=== PATIENT | male | born 1975 | race Caucasian/White ===

== ENCOUNTER 2017-08-09 14:01 | Emergency (ER) | payer BC ==
[~2017-08-09] VITALS: Ht 182.9 cm; Wt 68.0 kg
[2017-08-09] MEDS ORDERED: OMEPRAZOLE MAGN20 MG PO (14:35)
[2017-08-09 14:51] LABS: BASOPHILS ABSOLUTE AUTO 0.05 K/mm3 (0.00-0.23); BASOPHILS PERCENT AUTO 1 % (0-2); EOSINOPHILS ABSOLUTE AUTO 0.25 K/mm3 (0.00-0.68); EOSINOPHILS PERCENT AUTO 3 % (0-6); Hematocrit 43.3 % (37.0-53.0); Hemoglobin 15.2 g/dL (13.5-17.5); IMMATURE GRAN ABSOLUTE AUTO 0.03 K/mm3 (0.00-0.10); IMMATURE GRAN PERCENT AUTO 0 % (0-1); LYMPHOCYTES ABSOLUTE AUTO 1.56 K/mm3 (0.84-5.20); LYMPHOCYTES PERCENT AUTO 17 % (21-46); MONOCYTES PERCENT AUTO 5 % (4-13); Mean Corpuscular HGB 31.1 pg (26.0-34.0); Mean Corpuscular HGB Conc 35.1 g/dL (31.5-36.5); Mean Corpuscular Volume 89 fL (80-100); Mean Platelet Volume 12.5 fL (9.1-12.4); NEUTROPHILS ABSOLUTE AUTO 6.83 K/mm3 (1.96-9.15); NEUTROPHILS PERCENT AUTO 74 % (41-73); Platelet Count 227 K/mm3 (150-400); RDW Coefficient Variation 11.7 % (11.7-14.2); RDW Standard Deviation 37.6 fL (35.1-46.3); Red Blood Cell Count 4.89 M/mm3 (4.30-5.90); White Blood Cell Count 9.22 K/mm3 (4.00-11.30)
[2017-08-09 15:12] LABS: Base Excess Venous 4.7 mmol/L; Bicarbonate Venous 27.3 mmol/L (24.0-30.0); PCO2 Venous 47.5 mmHg (38-42)
[2017-08-09 15:13] LABS: Alanine Aminotransfer (ALT/SGP 19 U/L (12-78); Albumin, Blood 3.8 g/dL (3.4-5.0); Albumin/Globulin Ratio 1.2 (0.8-1.8); Alk Phos 165 U/L (50-136); Anion Gap 7 mmol/L (6-16); Aspartate Aminotrans (AST/SGOT 7 U/L (12-37); Bilirubin, Total 0.8 mg/dL (0.1-1.0); Blood Urea Nitrogen 11 mg/dL (8-24); Bun/Creatinine Ratio 15.7 (12.0-20.0); CO2, Blood 29 mmol/L (21-32); Calcium, Blood 9.1 mg/dL (8.5-10.1); Chloride, Blood 98 mmol/L (98-108); Globulin, Blood 3.2 g/dL (2.2-4.0); Glomerular Filtration Rate >60 (60-); Glucose, Blood 584 mg/dL (70-99); Potassium, Blood 4.6 mmol/L (3.5-5.5); Sodium, Blood 134 mmol/L (136-145)
[2017-08-09 15:29] LABS: Beta-hydroxybutyrate 2.4 mg/dL (0.2-2.8)
[2017-08-09] MEDS ORDERED: METF500C PO (16:29)
== END 2017-08-09 16:50 | disposition home or self-care (01) ==
LOC: ER 14:01
PROVIDERS: Emergency Medicine
DX: E11.65 Type 2 diabetes mellitus with hyperglycemia (principal); Z79.899 Other long term (current) drug therapy; F17.200 Nicotine dependence, unspecified, uncomplicated
CPT/HCPCS: 36415; 80053; 82010; 82803; 82947; 83036; 85025; J1815; J7030

== ENCOUNTER → 2020-12-13 | Outpatient (CLI) | payer OTHER ==
[~2020-12-13] MED LIST: METF500C PO; OMEPRAZOLE MAGN20 MG PO; ONDA4ODT MM; SUCR1 PO
== END ==
LOC: LAB 18:00 → LAB SHORT 18:00
DX: N39.0 Urinary tract infection, site not specified (principal)
CPT/HCPCS: 87077; 87086; 87186

== ENCOUNTER → 2022-12-26 | Outpatient (CLI) | payer BC ==
[2022-12-26 09:31] LABS: BASOPHILS ABSOLUTE AUTO 0.02 K/mm3 (0.00-0.23); BASOPHILS PERCENT AUTO 1 % (0-2); EOSINOPHILS PERCENT AUTO 5 % (0-6); Hematocrit 41.9 % (37.0-53.0); Hemoglobin 14.1 g/dL (13.5-17.5); IMMATURE GRAN ABSOLUTE AUTO 0.01 K/mm3 (0.00-0.10); IMMATURE GRAN PERCENT AUTO 0 % (0-1); LYMPHOCYTES PERCENT AUTO 21 % (21-46); MONOCYTES ABSOLUTE AUTO 0.51 K/mm3 (0.16-1.47); MONOCYTES PERCENT AUTO 14 % (4-13); Mean Corpuscular HGB 30.9 pg (26.0-34.0); Mean Corpuscular HGB Conc 33.7 g/dL (31.5-36.5); Mean Corpuscular Volume 92 fL (80-100); Mean Platelet Volume 11.6 fL (9.1-12.4); NEUTROPHILS ABSOLUTE AUTO 2.24 K/mm3 (1.96-9.15); NEUTROPHILS PERCENT AUTO 59 % (41-73); Platelet Count 179 K/mm3 (150-400); RDW Coefficient Variation 12.5 % (11.7-14.2); Red Blood Cell Count 4.57 M/mm3 (4.30-5.90); White Blood Cell Count 3.78 K/mm3 (4.00-11.30)
[2022-12-26 09:49] LABS: Alanine Aminotransfer (ALT/SGP 17 U/L (12-78); Albumin, Blood 3.7 g/dL (3.4-5.0); Albumin/Globulin Ratio 1.1 (0.8-1.8); Alk Phos 105 U/L (40-126); Anion Gap 6 mmol/L (6-16); Aspartate Aminotrans (AST/SGOT 11 U/L (12-37); Bilirubin, Total 0.9 mg/dL (0.1-1.0); Blood Urea Nitrogen 22 mg/dL (8-24); Bun/Creatinine Ratio 17.5 (12.0-20.0); CO2, Blood 27 mmol/L (21-32); Calcium, Blood 9.1 mg/dL (8.5-10.1); Chloride, Blood 103 mmol/L (98-108); Creatinine, Blood 1.26 mg/dL (0.60-1.20); Globulin, Blood 3.3 g/dL (2.2-4.0); Glomerular Filtration Rate 70 (60-); Glucose, Blood 293 mg/dL (70-99); Potassium, Blood 4.3 mmol/L (3.5-5.5); Sodium, Blood 136 mmol/L (136-145)
[2022-12-26 09:52] LABS: Thyroid Stimulating Hormone <0.007 uIU/mL (0.360-4.800)
== END ==
LOC: LAB SHORT 09:26 → LAB 09:26
PROVIDERS: Chiropractor
DX: R00.2 Palpitations (principal); R94.6 Abnormal results of thyroid function studies
CPT/HCPCS: 80053; 84439; 84443; 84481; 84484; 85025; 85379; 86376

== ENCOUNTER → 2022-12-26 | Outpatient (CLI) | payer BC | LOC: LAB SHORT 10:59 → LAB 10:59 | DX: R94.6 Abnormal results of thyroid function studies (principal) | CPT/HCPCS: 84445 ==

== ENCOUNTER → 2023-09-07 | Outpatient (CLI) | payer BC ==
[2023-09-07 11:36] LABS: BASOPHILS ABSOLUTE AUTO 0.05 K/mm3 (0.00-0.23); BASOPHILS PERCENT AUTO 1 % (0-2); EOSINOPHILS ABSOLUTE AUTO 0.13 K/mm3 (0.00-0.68); EOSINOPHILS PERCENT AUTO 2 % (0-6); Hematocrit 44.5 % (37.0-53.0); Hemoglobin 14.5 g/dL (13.5-17.5); IMMATURE GRAN ABSOLUTE AUTO 0.02 K/mm3 (0.00-0.10); IMMATURE GRAN PERCENT AUTO 0 % (0-1); LYMPHOCYTES ABSOLUTE AUTO 1.25 K/mm3 (0.84-5.20); LYMPHOCYTES PERCENT AUTO 21 % (21-46); MONOCYTES ABSOLUTE AUTO 0.48 K/mm3 (0.16-1.47); MONOCYTES PERCENT AUTO 8 % (4-13); Mean Corpuscular HGB 29.7 pg (26.0-34.0); Mean Corpuscular HGB Conc 32.6 g/dL (31.5-36.5); Mean Corpuscular Volume 91 fL (80-100); Mean Platelet Volume 11.2 fL (9.1-12.4); NEUTROPHILS ABSOLUTE AUTO 4.17 K/mm3 (1.96-9.15); NEUTROPHILS PERCENT AUTO 68 % (41-73); Platelet Count 222 K/mm3 (150-400); RDW Coefficient Variation 12.5 % (11.7-14.2); RDW Standard Deviation 41.2 fL (35.1-46.3); Red Blood Cell Count 4.88 M/mm3 (4.30-5.90)
[2023-09-07 11:44] LABS: Albumin, Blood 3.8 g/dL (3.4-5.0); Bilirubin, Total 0.5 mg/dL (0.1-1.0); Bun/Creatinine Ratio 14.5 (12.0-20.0); Calcium, Blood 9.4 mg/dL (8.5-10.1); Creatinine, Blood 1.45 mg/dL (0.60-1.20); Globulin, Blood 3.7 g/dL (2.2-4.0); Potassium, Blood 4.4 mmol/L (3.5-5.5); Total Protein, Blood 7.5 g/dL (6.4-8.2)
== END | disposition home or self-care (01) ==
LOC: LAB 11:30 → LAB SHORT 11:30
PROVIDERS: Internal Medicine
DX: E11.65 Type 2 diabetes mellitus with hyperglycemia (principal)
CPT/HCPCS: 80053; 85025

== ENCOUNTER 2024-09-23 08:25 | Day surgery (SDC) | payer BC ==
[~2024-09-23] VITALS: Ht 185.4 cm; Wt 95.3 kg
[2024-09-23] VITALS (10 sets, daily range): BP systolic 130–143; BP diastolic 81–94
[~2024-09-23 08:25] MED LIST changes: +FARXIGA5 MG PO; +INSULANPEN; +PANT40 PO; +Prinivil10 MG PO; +TADA10TA
[2024-09-23] MEDS ORDERED: NS 500 ML IV ONE (09:04)
[2024-09-23] MEDS ORDERED: NS 1,000 ML IV ONE ×2 (09:04→09:15)
[2024-09-23] MEDS ORDERED: Heparin Sodium 1000 Units/ML 10ML MDV ONE ×2 (09:04→09:15)
[2024-09-23] MEDS ORDERED: NS 100 ML IV ONE (09:04)
[2024-09-23] MEDS ORDERED: Nitroglycerin 2 MG/20 ML BTL ONE (09:05)
[2024-09-23] MEDS ORDERED: Verapamil HCL 2.5 MG/ML 2ML Injection ONE (09:05)
[2024-09-23] MEDS ORDERED: Midazolam HCl 1MG / ML 2ML Vial ONE ×2 (09:14→10:09)
[2024-09-23] MEDS ORDERED: FentaNYL Citrate 50 MCG/ML 2 ML Injection ONE (09:15)
--- NOTE | 2024-09-23 11:07 | NUR ---
PATIENT ARRIVED BACK TO RECOVERY ROOM SITTING UPRIGHT IN BED. RIGHT PT SITE C/D/I SOFT/NONTENDER, NO EVIDENCE OF BLEEDING. STRONG DP PULSE PRESENT WITH DOPPLER. VSS ON RA.
--- NOTE | 2024-09-23 11:35 | NUR ---
PATIENT TOLERATING PO INTAKE WELL. RIGHT PT ACCESS SITE C/D/I SOFT/NONTENDER, NO EVIDENCE OF BLEEDING. VSS ON RA.
--- NOTE | 2024-09-23 12:00 | NUR ---
PATIENT AMBULATING TO RESTROOM WITHOUT DIFFICULTY. PATIENT TOLERATING PO INTAKE WELL. VSS ON RA.
--- NOTE | 2024-09-23 12:50 | NUR ---
DISCHARGE INSTRUCTIONS REVIEWED WITH PATIENT. ALL QUESTIONS WERE ANSWERED. RIGHT PT ACCESS C/D/I SOFT/NONTENDER, NO EVIDENCE OF BLEEDING. DP PULSE PALPABLE, PT PULSE PRESENT WITH DOPPLER. PIV REMOVED WITHOUT DIFFICULTY, CATHETER INTACT. PATIENT WHEELED TO HOSPITAL ENTRANCE. ALL PATIENT BELONGINGS AND PAPERWORK LEFT WITH PATIENT. PATIENTS MOTHER ABLE TO PROVIDE TRANSPORTATION HOME.
[2024-10-06] MEDS ORDERED: INSULANPEN SC (13:11)
== END 2024-09-23 12:50 | disposition home or self-care (01) ==
LOC: MHTC 08:25
DX: E11.51 Type 2 diabetes mellitus with diabetic peripheral angiopathy without gangrene (principal); I70.221 Atherosclerosis of native arteries of extremities with rest pain, right leg; I70.92 Chronic total occlusion of artery of the extremities; I10 Essential (primary) hypertension; Z87.891 Personal history of nicotine dependence; Z79.84 Long term (current) use of oral hypoglycemic drugs; Z79.4 Long term (current) use of insulin; Z79.899 Other long term (current) drug therapy; Z88.8 Allergy status to other drugs, medicaments and biological substances
CPT/HCPCS: 37224; 37252; 75710; 75716; 76937; 99152; 99153; C1725; C1753; C1769; C1887; C1894; C2623; J1644; J2250; J3010; J7030; J7050; Q9967

== ENCOUNTER 2024-10-07 08:35 | Day surgery (SDC) | payer BC ==
[~2024-10-07] VITALS: Ht 182.9 cm; Wt 95.3 kg
[~2024-10-07 08:35] MED LIST changes: +INSULANPEN SC
[2024-10-07 09:07] VITALS: BP 115/77
[2024-10-07] MEDS ORDERED: NS 250 ML IV ONE (09:50)
[2024-10-07] MEDS ORDERED: NS 1,000 ML IV ONE ×2 (09:50→10:02)
[2024-10-07] MEDS ORDERED: NS 100 ML IV ONE (09:50)
[2024-10-07] MEDS ORDERED: Heparin Sodium 1000 Units/ML 10ML MDV ONE ×2 (09:50→11:03)
[2024-10-07] MEDS ORDERED: Midazolam HCl 1MG / ML 2ML Vial ONE (10:04)
[2024-10-07] MEDS ORDERED: FentaNYL Citrate 50 MCG/ML 2 ML Injection ONE (10:04)
[2024-10-07] MEDS ORDERED: Nitroglycerin 2 MG/20 ML BTL ONE (10:05)
[2024-10-07] MEDS ORDERED: Verapamil HCL 2.5 MG/ML 2ML Injection ONE (10:05)
[2024-10-07 12:00] VITALS: BP 111/88
[2024-10-07] MEDS ORDERED: ELIQUIS5 M2 PO (12:55)
[2024-10-07] MEDS ORDERED: ASPI81CH PO (12:55)
[2024-10-07] MEDS ORDERED: CLOP75 PO (12:55)
--- NOTE | 2024-10-07 13:00 | NUR ---
PT AMB TO BATHROOM /S DIFFICULTY. NEG BLEEDING OR SWELLING L PEDAL AREA.
--- NOTE | 2024-10-07 13:14 | NUR ---
PT VERBALIZED UNDERSTANDING OF WRITTEN AND VERBAL D/C INST. IV REMOVED. PT AMB OUT OF THE DEPARTMENT /S DIFFICULTY.
== END 2024-10-07 13:10 | disposition home or self-care (01) ==
LOC: MHTC 08:35
DX: I70.212 Atherosclerosis of native arteries of extremities with intermittent claudication, left leg (principal); E11.51 Type 2 diabetes mellitus with diabetic peripheral angiopathy without gangrene; I10 Essential (primary) hypertension; Z87.891 Personal history of nicotine dependence; Z79.84 Long term (current) use of oral hypoglycemic drugs; Z79.899 Other long term (current) drug therapy
CPT/HCPCS: 37227; 75710; 75774; 76937; 99152; 99153; A9270; C1714; C1725; C1769; C1874; C1887; C1894; C2623; J1644; J2250; J3010; J7030; J7050; Q9967

== ENCOUNTER 2024-10-27 06:50 | Day surgery (SDC) | payer BC ==
[2024-10-27] VITALS (8 sets, daily range): BP systolic 124–149; BP diastolic 83–93
[~2024-10-27] VITALS: Ht 185.4 cm; Wt 95.3 kg
[~2024-10-27 06:50] MED LIST changes: +ASPI81CH PO; +CLOP75 PO; +ELIQUIS5 M2 PO
[2024-10-27] MEDS ORDERED: METHI10 PO (07:53)
[2024-10-27] MEDS ORDERED: NS 100 ML IV ONE (07:56)
[2024-10-27] MEDS ORDERED: NS 250 ML IV ONE (07:56)
[2024-10-27] MEDS ORDERED: Heparin Sodium 1000 Units/ML 10ML MDV ONE ×2 (07:57→09:34)
[2024-10-27] MEDS ORDERED: NS 1,000 ML IV ONE ×2 (07:57→08:30)
[2024-10-27] MEDS ORDERED: Midazolam HCl 1MG / ML 2ML Vial ONE ×2 (08:28→08:53)
[2024-10-27] MEDS ORDERED: FentaNYL Citrate 50 MCG/ML 2 ML Injection ONE (08:30)
[2024-10-27] MEDS ORDERED: Nitroglycerin 2 MG/20 ML BTL ONE (09:01)
[2024-10-27] MEDS ORDERED: Verapamil HCL 2.5 MG/ML 2ML Injection ONE (09:01)
[2024-10-27] MEDS ORDERED: Protamine Sulfate 50 MG Amp ONE (10:06)
--- NOTE | 2024-10-27 10:35 | NUR ---
PATIENT TO RECOVERY ROOM AT 1020 S/P ANGIOGRAM AND STENT PLACEMENT TO RIGHT SFA X3. PATIENT AWAKE AND ALERT, DENIES C/O PAIN. VSS. ONLY ACCESS SITE IS TO RIGHT DP ARTERY. DRSG C/D/I. 1+ PULSES TO BILAT RIGHT PT/DP. PATIENT EATING BREAKFAST.
--- NOTE | 2024-10-27 11:11 | NUR ---
DR. MANLEY NOTIFIED THAT PATIENT HAD NOT PICKED UP OR STARTED ELIQUIS FROM LAST PROCEDURE, AND HAS NOT TAKEN PLAVIX SINCE SUNDAY. PATIENT STATES COST WAS AN ISSUE. DR. MANLEY BROUGHT OVER SAMPLES OF ELIQUIS AND A DISCOUNT CARD. PLAVIX 300MG PO NOW ORDERED AND GIVEN. PATIENT TO START ELIQUIS TOMORROW, AND TO RESUME PLAVIX 75MG/DAY STARTING TOMORROW. PATIENT UNDERSTANDS THAT HE SHOULD REACH OUT TO THE OFFICE IF HE IS UNABLE TO [employer] ELIQUIS D/T COST.
--- NOTE | 2024-10-27 12:21 | NUR ---
VERBAL AND WRITTEN DISCHARGE INSTRUCTIONS GIVEN TO PATIENT WITH CLEAR UNDERSTANDING. RIGHT PEDAL ACCESS SITE REMAINS STABLE. STENT CARD AND ELIQUIS SAMPLES SENT HOME WITH PATIENT. ELIQUIS DISCOUNT CARDS SENT HOME WITH PATIENT. IV DC'D INTACT. PT OOB TO DRESS, HANSA WELL.
--- NOTE | 2024-10-27 12:42 | NUR ---
PATIENT DISCHARGED IN STABLE CONDITION AT 1235. PATIENT ESCORTED OUT VIA WHEELCHAIR AND DIVEN HOME BY PT'S MOTHER.
== END 2024-10-27 12:42 | disposition home or self-care (01) ==
LOC: MHTC 06:50 → SDS 06:50 → EDSTATUS 07:00 → MHTC 07:00 → SDS 12:42
DX: E11.51 Type 2 diabetes mellitus with diabetic peripheral angiopathy without gangrene (principal); I70.221 Atherosclerosis of native arteries of extremities with rest pain, right leg; I10 Essential (primary) hypertension; Z87.891 Personal history of nicotine dependence; Z79.4 Long term (current) use of insulin; Z79.84 Long term (current) use of oral hypoglycemic drugs; Z79.899 Other long term (current) drug therapy; Z88.8 Allergy status to other drugs, medicaments and biological substances
CPT/HCPCS: 37226; 75710; 75774; 76937; 82947; 99152; 99153; A9270; C1725; C1769; C1874; C1887; C1894; J1644; J2250; J2720; J3010; J7030; J7050; Q9967